=== PATIENT | female | born 1950 | race Caucasian/White ===

== ENCOUNTER 2016-12-07 10:51 | Outpatient (CLI) | payer MEDICARE, BC ==
[2016-12-07 18:16] LABS: BASOPHILS % (AUTO) 0.3 %; EOSINOPHILS # (AUTO) 0.1 10^3/uL (0.0-0.7); EOSINOPHILS % (AUTO) 2.7 %; HCT - HEMATOCRIT 46.2 % (37.0-47.0); HGB - HEMOGLOBIN 15.4 g/dL (12.0-16.0); LYMPHOCYTES # (AUTO) 1.4 10^3/uL (1.5-3.5); LYMPHOCYTES % (AUTO) 33.1 %; MEAN CORPUSCULAR HEMOGLOBIN 30.2 pg (27.0-31.0); MEAN CORPUSCULAR HGB CONC 33.4 g/dL (32.0-36.0); MEAN CORPUSCULAR VOLUME 90.4 fL (81.0-99.0); MEAN PLATELET VOLUME 9.1 fL (7.9-10.8); MONOCYTES # (AUTO) 0.3 10^3/uL (0.0-1.0); MONOCYTES % (AUTO) 7.8 %; NEUTROPHILS # (AUTO) 2.3 10^3/uL (1.5-6.6); NEUTROPHILS % (AUTO) 56.1 %; RED BLOOD COUNT 5.11 10^6/uL (4.20-5.40); RED CELL DISTRIBUTION WIDTH 12.8 % (12.0-15.0); UNCORRECTED WHITE BLOOD COUNT 4.1 x10^3/uL; WHITE BLOOD COUNT 4.1 x10^3/uL (4.8-10.8)
[2016-12-07 19:02] LABS: ALBUMIN/GLOBULIN RATIO 1.8 (1.0-2.2); BILIRUBIN,TOTAL 0.3 mg/dL (0.2-1.0); CALCIUM 9.7 mg/dL (8.5-10.3); POTASSIUM 4.3 mmol/L (3.5-5.0); TOTAL PROTEIN 6.9 g/dL (6.7-8.2)
[2016-12-07 19:16] LABS: FERRITIN 60.7 ng/mL (11.0-306.8)
[2016-12-07 19:31] LABS: THYROID STIMULATING HORMONE < 0.08 uIU/mL (0.34-5.60)
== END 2016-12-07 10:52 | disposition home or self-care (01) ==
LOC: LAB.F 10:51
PROVIDERS: ATTEND Nurse Practitioner Family
DX: R53.83 Other fatigue (principal); D50.9 Iron deficiency anemia, unspecified; E55.9 Vitamin D deficiency, unspecified; E03.2 Hypothyroidism due to medicaments and other exogenous substances; Z79.899 Other long term (current) drug therapy
CPT/HCPCS: 36415; 80053; 82306; 82728; 84436; 84439; 84443; 84481; 85025; 86376

== ENCOUNTER 2021-07-13 08:00 | Outpatient (CLI) | payer MEDICARE, BC | END 2021-07-13 23:59 | LOC: LAB.S 08:00 | PROVIDERS: ATTEND Emergency Medicine | DX: U07.1 COVID-19 (principal) ==

== ENCOUNTER 2021-08-12 18:29 | Outpatient (CLI) | payer MEDICARE | END 2021-08-12 23:59 | disposition home or self-care (01) | LOC: LAB.S 18:29 | PROVIDERS: ATTEND Emergency Medicine | DX: J06.9 Acute upper respiratory infection, unspecified (principal); Z20.822 Contact with and (suspected) exposure to COVID-19 | CPT/HCPCS: 86769 ==

== ENCOUNTER 2022-05-11 20:18 | Outpatient (CLI) | payer MEDICARE, OTHER | END 2022-05-11 20:19 | disposition home or self-care (01) | LOC: SC 20:18 | PROVIDERS: ATTEND Nurse Practitioner Family | DX: R53.83 Other fatigue (principal); G47.8 Other sleep disorders; R06.81 Apnea, not elsewhere classified | CPT/HCPCS: 95810 ==

== ENCOUNTER 2022-07-08 00:27 | Outpatient (CLI) | payer MEDICARE, OTHER | END 2022-07-08 00:28 | disposition EMS.NT | LOC: EMS 00:27 | DX: M54.50 Low back pain, unspecified (principal) ==

== ENCOUNTER 2022-07-08 08:00 | Outpatient (CLI) | payer MEDICARE, OTHER ==
--- NOTE | 2022-07-09 11:09 | XRAY Report ---
PROCEDURE: Abdomen 1 View X-Ray INDICATIONS: LEFT FLANK PAIN TECHNIQUE: One view of the abdomen acquired. COMPARISON: None FINDINGS: Surgical changes and devices: None. Bowel: Bowel gas pattern is normal. Soft tissues: No suspicious abdominal calcifications. Small phleboliths are seen in lower pelvis mohit aterally. Visualized solid organ contours appear normal in size. Bones: No suspicious bony lesions. IMPRESSION: No gross renal calcification is seen. No evidence of bowel obstruction or gross free air. Reviewed by: Jose Teague MD on 07/09/2022 11:08 AM [facility] Approved by: Jose Teague MD on 07/09/2022 11:08 AM [facility] Station ID: [id number]
== END 2022-07-08 08:01 | disposition home or self-care (01) ==
LOC: DI.S 08:00
PROVIDERS: ATTEND Registered Nurse
DX: R10.9 Unspecified abdominal pain (principal)
CPT/HCPCS: 87086

== ENCOUNTER 2022-07-13 13:02 | Outpatient (CLI) | payer MEDICARE, OTHER ==
--- NOTE | 2022-07-13 14:14 | CT Report ---
PROCEDURE: ABDOMEN/PELVIS WO INDICATIONS: LEFT FLANK PAIN TECHNIQUE: Noncontrast 5 mm thick sections acquired from the diaphragms to the symphysis. 5 mm coronal and sagi ttal reformats were then performed. For radiation dose reduction, the following was used: automated exposure control, adjustment of mA and/or kV according to patient size. COMPARISON: None. FINDINGS: Image quality: Good Lower chest: Scattered scarring/atelectasis. Patulous distal esophagus, nonspecific. Solid organs: Subcentimeter lesions are too small to characterize. Liver is otherwise unremarkable. G allbladder is unremarkable. No pathologic dilation of biliary tree or pancreatic duct. No splenomegal y. No adrenal nodules. No hydronephrosis. Vessels and lymph nodes: No abdominal aortic aneurysm or pathologic adenopathy by size criteria. Bowel and peritoneum: No evidence of bowel obstruction. No pathologic ascites. Colonic diverticula ar e present. Body wall: Small fat-containing umbilical hernia. Pelvis: The bladder is underdistended limiting evaluation. Suspected calcified fibroids. Reproductive organs are also not well evaluated on CT. Bones: Small sclerotic lesions may represent bone islands. No acute or suspicious osseous abnormality . IMPRESSION: No acute abdominopelvic pathology. No calcified renal stone or hydronephrosis. Other incidental/favor ed nonacute findings as above. Reviewed by: Jose Land MD on 07/13/2022 2:13 PM PST Approved by: Jose Land MD on 07/13/2022 2:13 PM PST Station ID: [id number]
== END 2022-07-13 13:03 | disposition home or self-care (01) ==
LOC: DI 13:02
PROVIDERS: ATTEND Registered Nurse
DX: R10.9 Unspecified abdominal pain (principal)

== ENCOUNTER 2022-11-24 08:00 | Outpatient (CLI) | payer MEDICARE, OTHER | END 2022-11-24 23:59 | disposition home or self-care (01) | LOC: LAB.S 08:00 | PROVIDERS: ATTEND Registered Nurse | DX: R10.9 Unspecified abdominal pain (principal) | CPT/HCPCS: 87086 ==

== ENCOUNTER 2022-11-24 08:31 | Outpatient (CLI) | payer MEDICARE, OTHER ==
--- NOTE | 2022-11-24 11:19 | XRAY Report ---
PROCEDURE: Cervical Spine 2 View INDICATIONS: NECK PAIN/PAIN IN THORACIC SPINE TECHNIQUE: 3 view(s) of the cervical spine were acquired. COMPARISON: None. FINDINGS: Bones: No fractures or dislocations to the T1 level. The lateral masses of C1 appear intact on the odontoid view. No suspicious bony lesions. Mild multilevel degenerative changes with disc height lo ss, endplate spurring, and facet arthropathy. These changes are most pronounced at the lower cervical spine. Soft tissues: No prevertebral soft tissue swelling. IMPRESSION: Multilevel degenerative changes of the cervical spine. No acute cervical spine fracture identified radiographically. If symptoms persist, follow-up radiographs and/or CT or MRI may be helpf ul for further evaluation. Reviewed by: Yosvany Giron MD on 11/24/2022 11:18 AM PDT Approved by: Yosvany Giron MD on 11/24/2022 11:18 AM PDT Station ID: [id number]
--- NOTE | 2022-11-24 11:24 | XRAY Report ---
PROCEDURE: Thoracic Spine 3 View INDICATIONS: NECK PAIN/PAIN IN THORACIC SPINE TECHNIQUE: 3 views of the thoracic spine were acquired. COMPARISON: None. FINDINGS: Bones: No fractures or dislocations. No suspicious bony lesions. 12 pairs of ribs are noted, and a ppear intact where visualized. Soft tissues: No paravertebral stripe thickening. IMPRESSION: No thoracic spine fracture identified. If symptoms persist, follow-up radiographs and/or CT or MRI ma y be helpful for further evaluation. Reviewed by: Yosvany Giron MD on 11/24/2022 11:23 AM PDT Approved by: Yosvany Giron MD on 11/24/2022 11:23 AM PDT Station ID: [id number]
== END 2022-11-24 08:32 | disposition home or self-care (01) ==
LOC: DI.S 08:31
PROVIDERS: ATTEND Internal Medicine
DX: M47.812 Spondylosis without myelopathy or radiculopathy, cervical region (principal); M54.6 Pain in thoracic spine; R10.9 Unspecified abdominal pain
CPT/HCPCS: 87086

== ENCOUNTER 2023-02-04 11:45 | Outpatient (CLI) | payer MEDICARE, OTHER | END 2023-02-04 11:46 | disposition home or self-care (01) | LOC: LAB.S 11:45 | PROVIDERS: ATTEND Internal Medicine | DX: E71.314 Muscle carnitine palmitoyltransferase deficiency (principal); N18.31 Chronic kidney disease, stage 3a | CPT/HCPCS: 81599; 82610 ==

== ENCOUNTER 2023-03-09 11:39 | Outpatient (CLI) | payer MEDICARE, OTHER | END 2023-03-09 11:40 | disposition home or self-care (01) | LOC: LAB.S 11:39 | PROVIDERS: ATTEND Internal Medicine | DX: E71.314 Muscle carnitine palmitoyltransferase deficiency (principal); N18.31 Chronic kidney disease, stage 3a | CPT/HCPCS: 81599; 82610 ==

== ENCOUNTER 2023-03-16 07:00 | Outpatient (CLI) | payer MEDICARE, OTHER ==
--- NOTE | 2023-03-17 16:46 | XRAY Report ---
PROCEDURE: Foot 3 View LT INDICATIONS: SPRAIN OF LEFT FOOT TECHNIQUE: 3 views of the foot were acquired. COMPARISON: None. FINDINGS: Bones: There is a linear osseous density adjacent to the cuboid. There is moderate osteoarthritis ch anges at the first metatarsophalangeal joint, and mild osteoarthritis in multiple interphalangeal milton nts. Soft tissues: No suspicious soft tissue calcifications or masses. Soft tissue swelling noted. IMPRESSION: 1. A linear osseous density is noted adjacent to the cuboid, concerning for fracture. Please correlat e with focal pain and tenderness. Recommend a follow-up exam in 7-10 days if clinical symptoms persis t. 2. Moderate/mild osteoarthritis. Reviewed by: Stephan Maciel MD on 03/17/2023 4:45 PM PDT Approved by: Stephan Maciel MD on 03/17/2023 4:45 PM PDT Station ID: [id number]
--- NOTE | 2023-03-17 16:48 | XRAY Report ---
PROCEDURE: Ankle 3 View LT INDICATIONS: LEFT ANKLE PAIN TECHNIQUE: 3 views of the ankle were acquired. COMPARISON: None. FINDINGS: Bones: No fractures or dislocations. Ankle mortise is normally aligned. No suspicious bony lesions . Soft tissues: No tibiotalar joint effusion. Achilles tendon appears normal. Soft tissue swelling o jenn the anterior and lateral aspect of the ankle/hindfoot. IMPRESSION: 1. No acute bony abnormality. 2. Soft tissue swelling. 3. Please see separate report for x-ray of the left foot. Reviewed by: Stephan Maciel MD on 03/17/2023 4:47 PM PDT Approved by: Stephan Maciel MD on 03/17/2023 4:47 PM PDT Station ID: [id number]
== END 2023-03-16 23:59 | disposition home or self-care (01) ==
LOC: DI.S 07:00
PROVIDERS: ATTEND Emergency Medicine
DX: S93.412A Sprain of calcaneofibular ligament of left ankle, initial encounter (principal); S93.602A Unspecified sprain of left foot, initial encounter; M19.072 Primary osteoarthritis, left ankle and foot; R93.6 Abnormal findings on diagnostic imaging of limbs

== ENCOUNTER 2023-08-31 09:07 | Outpatient (CLI) | payer MEDICARE, OTHER ==
[2023-08-31 15:09] LABS: BASOPHILS % (AUTO) 0.7 %; EOSINOPHILS # (AUTO) 0.1 10^3/uL (0.0-0.7); EOSINOPHILS % (AUTO) 1.6 %; HGB - HEMOGLOBIN 15.2 g/dL (12.0-16.0); LYMPHOCYTES # (AUTO) 1.7 10^3/uL (1.5-3.5); LYMPHOCYTES % (AUTO) 39.1 %; MEAN CORPUSCULAR HEMOGLOBIN 29.6 pg (27.0-31.0); MEAN CORPUSCULAR HGB CONC 31.7 g/dL (32.0-36.0); MEAN CORPUSCULAR VOLUME 93.6 fL (81.0-99.0); MEAN PLATELET VOLUME 10.5 fL (7.9-10.8); MONOCYTES # (AUTO) 0.4 10^3/uL (0.0-1.0); MONOCYTES % (AUTO) 8.5 %; NEUTROPHILS # (AUTO) 2.2 10^3/uL (1.5-6.6); NEUTROPHILS % (AUTO) 49.9 %; PLT - PLATELET COUNT 301 10^3/uL (130-450); RED BLOOD COUNT 5.13 10^6/uL (4.20-5.40); RED CELL DISTRIBUTION WIDTH 11.9 % (12.0-15.0); WHITE BLOOD COUNT 4.4 x10^3/uL (4.8-10.8)
[2023-08-31 17:02] LABS: THYROID STIMULATING HORMONE 0.43 uIU/mL (0.34-5.60)
[2023-08-31 17:05] LABS: ALBUMIN 4.2 g/dL (3.2-5.5); ALBUMIN/GLOBULIN RATIO 1.6 (1.0-2.2); ALKALINE PHOSPHATASE 62 IU/L (42-121); ALT ALANINE AMINOTRANSFERASE 12 IU/L (10-60); AST ASPARTATE AMINOTRANSFERASE 18 IU/L (10-42); BILIRUBIN,TOTAL 0.7 mg/dL (0.2-1.0); BUN - BLOOD UREA NITROGEN 19 mg/dL (6-20); CALCIUM 9.8 mg/dL (8.5-10.3); CARBON DIOXIDE - CO2 29 mmol/L (21-32); CHLORIDE 108 mmol/L (101-111); CHOLESTEROL 206 mg/dL; GFR - MDRD 54 (>89); GLUCOSE 101 mg/dL (74-104); HDL CHOLESTEROL 51 mg/dL; LDL CHOLESTEROL,CALCULATED 125 mg/dL; LDL/HDL RATIO 2.5 (<4.4); POTASSIUM 4.1 mmol/L (3.5-4.5); SODIUM 142 mmol/L (135-145); TOTAL PROTEIN 6.9 g/dL (6.4-8.9); TRIGLYCERIDES 150 mg/dL (48-352); VLDL CHOLESTEROL 30 mg/dL
== END 2023-08-31 09:08 | disposition home or self-care (01) ==
LOC: LAB.S 09:07
PROVIDERS: ATTEND Internal Medicine
DX: E71.314 Muscle carnitine palmitoyltransferase deficiency (principal); N18.31 Chronic kidney disease, stage 3a; E03.9 Hypothyroidism, unspecified
CPT/HCPCS: 36415; 80053; 80061; 81599; 82610; 83721; 84439; 84443; 84481; 85025

== ENCOUNTER 2024-01-16 07:15 | Outpatient (CLI) | payer MEDICARE, OTHER ==
[2024-01-16 14:29] LABS: BASOPHILS % (AUTO) 0.6 %; EOSINOPHILS # (AUTO) 0.2 10^3/uL (0.0-0.7); EOSINOPHILS % (AUTO) 3.4 %; HCT - HEMATOCRIT 49.7 % (37.0-47.0); HGB - HEMOGLOBIN 15.9 g/dL (12.0-16.0); LYMPHOCYTES # (AUTO) 1.8 10^3/uL (1.5-3.5); LYMPHOCYTES % (AUTO) 36.2 %; MEAN CORPUSCULAR HEMOGLOBIN 29.9 pg (27.0-31.0); MEAN CORPUSCULAR VOLUME 93.6 fL (81.0-99.0); MEAN PLATELET VOLUME 10.9 fL (7.9-10.8); MONOCYTES # (AUTO) 0.5 10^3/uL (0.0-1.0); MONOCYTES % (AUTO) 9.1 %; NEUTROPHILS # (AUTO) 2.6 10^3/uL (1.5-6.6); NEUTROPHILS % (AUTO) 50.7 %; PLT - PLATELET COUNT 279 10^3/uL (130-450); RED BLOOD COUNT 5.31 10^6/uL (4.20-5.40); WHITE BLOOD COUNT 5.1 x10^3/uL (4.8-10.8)
[2024-01-16 14:40] LABS: ALBUMIN 4.3 g/dL (3.2-5.5); ALBUMIN/GLOBULIN RATIO 1.7 (1.0-2.2); ALKALINE PHOSPHATASE 60 IU/L (42-121); ALT ALANINE AMINOTRANSFERASE 10 IU/L (10-60); AST ASPARTATE AMINOTRANSFERASE 17 IU/L (10-42); BILIRUBIN,TOTAL 0.7 mg/dL (0.2-1.0); BUN - BLOOD UREA NITROGEN 18 mg/dL (6-20); CALCIUM 9.4 mg/dL (8.5-10.3); CARBON DIOXIDE - CO2 30 mmol/L (21-32); CHLORIDE 105 mmol/L (101-111); CHOL/HDL RATIO 4.4 (<4.4); CHOLESTEROL 192 mg/dL; GFR - MDRD 54 (>89); GLUCOSE 101 mg/dL (74-104); HDL CHOLESTEROL 44 mg/dL; LDL CHOLESTEROL,CALCULATED 125 mg/dL; LDL/HDL RATIO 2.8 (<4.4); POTASSIUM 3.9 mmol/L (3.5-4.5); SODIUM 138 mmol/L (135-145); TOTAL PROTEIN 6.9 g/dL (6.4-8.9); TRIGLYCERIDES 114 mg/dL; VLDL CHOLESTEROL 23 mg/dL
== END 2024-01-16 07:16 | disposition home or self-care (01) ==
LOC: LAB.S 07:15
PROVIDERS: ATTEND Internal Medicine
DX: E71.314 Muscle carnitine palmitoyltransferase deficiency (principal); N18.31 Chronic kidney disease, stage 3a
CPT/HCPCS: 36415; 80053; 80061; 81599; 83721; 85025

== ENCOUNTER 2024-01-27 07:02 | Outpatient (CLI) | payer MEDICARE, OTHER | END 2024-01-27 07:03 | disposition home or self-care (01) | LOC: LAB.S 07:02 | PROVIDERS: ATTEND Internal Medicine | DX: E71.314 Muscle carnitine palmitoyltransferase deficiency (principal); N18.31 Chronic kidney disease, stage 3a | CPT/HCPCS: 36415; 80053; 80061; 81599; 83721; 85025 ==